=== PATIENT | female | born 1980 | race Caucasian/White ===

== ENCOUNTER 2017-07-28 16:30 | Inpatient (IN) | payer BC ==
[~2017-07-28] VITALS: Ht 154.9 cm; Wt 52.5 kg
[~2017-07-28 16:30] MED LIST: BACL20TA PO; HYDR-3533 PO; METH750T2 PO
[2017-07-28 16:37] VITALS: BP 129/69; PULSE 73; RESP 24; TEMP 98.4; O2SAT 99
[2017-07-28 17:00] VITALS: O2SAT 100
[2017-07-28] MEDS ORDERED: HYDROmorphone HCL PF 1 MG/ML VIAL IV PUSH ONE (17:00)
[2017-07-28 17:15] LABS: AUTOMATED NEUTROPHIL # 7.3 TH/MM3 (1.8-7.7); BASOPHIL # 0.1 TH/MM3 (0-0.2); BASOPHIL % 0.6 % (0.0-2.0); EOSINOPHIL # 0.1 TH/MM3 (0-0.4); EOSINOPHIL % 1.4 % (0.0-4.0); HEMATOCRIT 39.9 % (35.0-46.0); HEMOGLOBIN 13.6 GM/DL (11.6-15.3); LYMPHOCYTE # 1.6 TH/MM3 (1.0-4.8); MEAN CELL VOLUME 94.9 FL (80.0-100.0); MEAN CORPUSCULAR HEMOGLOBIN 32.3 PG (27.0-34.0); MEAN PLATELET VOLUME 8.2 FL (7.0-11.0); MONO % 6.6 % (0.0-8.0); MONOCYTE # 0.6 TH/MM3 (0-0.9); NEUT % 75.4 % (16.0-70.0); PLATELET COUNT 257 TH/MM3 (150-450); RED BLOOD COUNT 4.21 MIL/MM3 (4.00-5.30); RED CELL DISTRIBUTION WIDTH 13.2 % (11.6-17.2); WHITE BLOOD COUNT 9.7 TH/MM3 (4.0-11.0)
[2017-07-28 17:28] LABS: PROTHROMBIN TIME - PATIENT 11.3 SEC (9.8-11.6)
--- NOTE | 2017-07-28 17:29 | RADRPT ---
EXAM DATE/TIME: 07/28/2017 17:18 [facility] COMPARISON: No previous studies available for comparison. INDICATIONS : Evaluate for pneumonia, pneumothorax, or communicable disease. Pre op ankle surgery. MEDICAL HISTORY : None. SURGICAL HISTORY : None. ENCOUNTER: Initial ACUITY: 1 day PAIN SCORE: 0/10 LOCATION: Bilateral chest FINDINGS: A single view of the chest demonstrates the lungs to be symmetrically aerated without evidence of mas s, infiltrate or effusion. The cardiomediastinal contours are unremarkable. Osseous structures are intact. CONCLUSION: 1. No acute cardiopulmonary disease. Jarrett Renee MD on July 28, 2017 at 17:27 Board Certified Radiologist. This report was verified electronically.
--- NOTE | 2017-07-28 17:30 | RADRPT ---
EXAM DATE/TIME: 07/28/2017 17:21 [facility] COMPARISON: No previous studies available for comparison. INDICATIONS : Right tibia pain after ankle being smashed by 2 palets. MEDICAL HISTORY : None. SURGICAL HISTORY : None. ENCOUNTER: Initial ACUITY: 1 day PAIN SCORE: 10/10 LOCATION: Right distal tibia. FINDINGS: There are transverse fractures of distal tibia and fibula with 30 medial angulation of the apex. No articular extent of the fracture is identified. CONCLUSION: 1. Fracture distal tibia and fibula Jarrett Renee MD on July 28, 2017 at 17:27 Board Certified Radiologist. This report was verified electronically.
[2017-07-28 17:41] LABS: BICARBONATE 22.4 MEQ/L (21.0-32.0); CALCIUM 8.4 MG/DL (8.5-10.1); CREATININE 0.78 MG/DL (0.50-1.00)
--- NOTE | 2017-07-28 17:54 | PD ---
HPI Chief Complaint: Injury Time Seen by Provider: 16:37 Travel History International Travel<30 days: No Contact w/Intl Traveler<30days: No Traveled to known affect area: No History of Present Illness HPI 36-year-old female presents with right lower extremity injury. 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 There was obvious deformity on scene. Patient has external angulation of her right ankle. She has normal sensation across her toes. She has cap refill less than 5 seconds and palpable dorsalis pedis pulses. There are no other injury. PFSH Past Medical History Anxiety: Yes Depression: Yes Cancer: No Cardiovascular Problems: No Diabetes: No Diminished Hearing: No Glaucoma: No Hepatitis: No Hiatal Hernia: No Hypertension: No Psychiatric: Yes (PANIC ATTACKS) Respiratory: No Immunizations Current: Yes Thyroid Disease: No ?: Not LMP: 07/07/17 : 2 Para: 2 Past Surgical History Pacemaker: No Other Surgery: Yes Social History Alcohol Use: No Tobacco Use: Yes Substance Use: No Allergies-Medications (Allergen,Severity, Reaction): Coded Allergies: No Known Allergies (Verified Adverse Reaction, Unknown, 07/28/17) Reported Meds & Prescriptions Reported Meds & Active Scripts Active No Active Prescriptions or Reported Medications Review of Systems Except as stated in HPI: all other systems reviewed are Neg HENT: No: Headaches, Neck Pain Cardiovascular: No: Chest Pain or Discomfort, Palpitations Respiratory: No: Cough, Shortness of Breath Gastrointestinal: No: Nausea, Vomiting, Abdominal Pain Musculoskeletal: Positive: Limited ROM (secondary to pain), Pain, No: Weakness (right ankle), Edema Neurologic: No: Weakness, Headache, Paresthesia, Sensory Disturbance Physical Exam Narrative GENERAL: Well-nourished, well-developed patient. SKIN: Focused skin assessment warm/dry. HEAD: Normocephalic/atraumatic. EYES: No scleral icterus. No injection or drainage. NECK: Supple, trachea midline. No JVD or lymphadenopathy. CARDIOVASCULAR: Regular rate and rhythm without murmurs, gallops, or rubs. RESPIRATORY: Breath sounds equal bilaterally. No accessory muscle use. GASTROINTESTINAL: Abdomen soft, nontender. Nondistended. MUSCULOSKELETAL: Obvious lateral displacement of the distal tib-fib. Palpable dorsalis pedis pulses. Cap refill less than 3 seconds. Normal sensation across all 5 toes. There is a puncture wound at the posterior distal third of her ankle. NEUROLOGICAL: Awake and alert. Cranial nerves II through XII intact. Motor grossly within normal limits. Five out of 5 muscle strength in all muscle groups. Normal speech. Data Data Last Documented VS Vital Signs Date Time Temp Pulse Resp B/P (MAP) Pulse Ox O2 Delivery O2 Flow Rate FiO2 07/28/17 17:00 100 Room Air 07/28/17 16:37 98.4 73 24 129/69 (89) Orders Orders Admit Order (Ed Use Only) (07/28/17 16:43) Tibia/Fibula (Ap/Lat) (07/28/17 16:49) Complete Blood Count With Diff (07/28/17 16:49) Basic Metabolic Panel (Bmp) (07/28/17 16:49) Prothrombin Time / Inr (Pt) (07/28/17 16:49) Act Partial Throm Time (Ptt) (07/28/17 16:49) Chest, Single Ap (07/28/17 16:49) Iv Access Insert/Monitor (07/28/17 16:49) Ecg Monitoring (07/28/17 16:49) Oximetry (07/28/17 16:49) Hydromorphone Pf Inj (Dilaudid Pf Inj) (07/28/17 17:00) Admit Order (Ed Use Only) (07/28/17 17:44) Midazolam Inj (Versed Inj) (07/28/17 18:00) Labs Laboratory Tests Test 07/28/17 17:00 White Blood Count 9.7 TH/MM3 Red Blood Count 4.21 MIL/MM3 Hemoglobin 13.6 GM/DL Hematocrit 39.9 % Mean Corpuscular Volume 94.9 FL Mean Corpuscular Hemoglobin 32.3 PG Mean Corpuscular Hemoglobin Concent 34.0 % Red Cell Distribution Width 13.2 % Platelet Count 257 TH/MM3 Mean Platelet Volume 8.2 FL Neutrophils (%) (Auto) 75.4 % Lymphocytes (%) (Auto) 16.0 % Monocytes (%) (Auto) 6.6 % Eosinophils (%) (Auto) 1.4 % Basophils (%) (Auto) 0.6 % Neutrophils # (Auto) 7.3 TH/MM3 Lymphocytes # (Auto) 1.6 TH/MM3 Monocytes # (Auto) 0.6 TH/MM3 Eosinophils # (Auto) 0.1 TH/MM3 Basophils # (Auto) 0.1 TH/MM3 CBC Comment DIFF FINAL Differential Comment Prothrombin Time 11.3 SEC Prothromb Time International Ratio 1.0 RATIO Activated Partial Thromboplast Time 24.3 SEC Blood Urea Nitrogen 12 MG/DL Creatinine 0.78 MG/DL Random Glucose 96 MG/DL Calcium Level 8.4 MG/DL Sodium Level 137 MEQ/L Potassium Level 3.5 MEQ/L Chloride Level 106 MEQ/L Carbon Dioxide Level 22.4 MEQ/L Anion Gap 9 MEQ/L Estimat Glomerular Filtration Rate 83 ML/MIN MDM Medical Decision Making Medical Screen Exam Complete: Yes Emergency Medical Condition: Yes Differential Diagnosis Closed versus open fracture versus contusion versus intra-articular fracture versus dislocation Narrative Course 36-year-old female presents after getting her right lower extremity, between 2 pallets. Patient has obvious deformity to her distal ankle. The patient has a puncture wound in the posterior ankle. This is an open fracture by definition. She has a comminuted distal tibial fracture about an inch above the ankle joint. It was successfully reduced and placed in a Betadine dressing. She was given Ancef and gentamicin. Dr. Casey covering today requested we admit her to the hospitalist service. He states Dr. Martínez will repair the ankle tomorrow morning. She'll be made nothing by mouth after midnight. Procedures Procedure Narrative Using traction, the right ankle was straightened and placed in a posterior splint. Betadine dressing was placed to the posterior puncture wound. Patient had dorsalis pedis pulses after the splinting. Cap refill is less than 3 seconds and she had normal sensation across her toes. Diagnosis Primary Impression: right open distal tibia/fibula fracture Scripts No Active Prescriptions or Reported Meds Ankit Varner MD Jul 28, 2017 17:54
[2017-07-28 18:00] VITALS: BP 143/69; PULSE 76; RESP 21; O2SAT 100
[2017-07-28] MEDS ORDERED: MIDAZOLAM HCL 2 MG/2 ML VIAL IV PUSH ONE (18:00)
[2017-07-28] MEDS ORDERED: MAGNESIUM HYDROXIDE SUSP 30 ML CUP PO PRN (18:15)
[2017-07-28] MEDS ORDERED: SODIUM CHLORIDE 0.9% IV ONE (18:15)
[2017-07-28] MEDS ORDERED: SENNOSIDES 8.6 MG TAB PO PRN (18:15)
[2017-07-28] MEDS ORDERED: LACTULOSE SYRUP 20 GM/30 ML CUP PO PRN (18:15)
[2017-07-28] MEDS ORDERED: BISACODYL 10 MG SUPP RECTAL PRN (18:15)
[2017-07-28] MEDS ORDERED: ONDANSETRON HCL 4 MG/2 ML VIAL IVP PRN (18:15)
[2017-07-28] MEDS ORDERED: MORPHINE SULFATE 4 MG/ML INJ IV PUSH PRN (18:15)
[2017-07-28] MEDS ORDERED: GENTAMICIN IV ONE (18:15)
[2017-07-28] MEDS ORDERED: oxyCODONE/ACETAMINOPHEN 7.5 MG/325 MG TAB PO PRN (18:15)
[2017-07-28] MEDS ORDERED: NALOXONE HCL 0.4 MG/ML AMP IV PUSH PRN (18:15)
[2017-07-28] MEDS ORDERED: ACETAMINOPHEN 325 MG TAB PO PRN (18:15)
[2017-07-28] MEDS ORDERED: ceFAZolin 2 GM PREMIX 50 ML IV ONE (18:15)
[2017-07-28 18:26] VITALS: BP 120/68; PULSE 68; RESP 22; O2SAT 100
--- NOTE | 2017-07-28 18:33 | HHI.HP ---
[facility] Curtis De Jesus MD, PhD Admission Diagnosis right open tib/fib fracture Diagnoses: Chief Complaint: Right leg injury Travel History International Travel<30 Days: No Contact w/Intl Traveler <30 Da: No Traveled to Known Affected Are: No History of Present Illness Ms. 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 Around 3:30 p.m her right foot got stuck in between two pallets. When she was rescued her foot was dangling. She did not move until EMS came to bring her to the hospital. Patient denies any chest pain , shortness of breath, fever or chills. She denies any changes in bowel or bladder habits. ER doctor discussed with orthopedic surgery. Patient underwent right leg immobilization. She will undergo surgical intervention in the morning. Review of Systems Except as stated in HPI: all other systems reviewed are Neg Past Family Social History Past Medical History no significant past medical history Past Surgical History bilateral carpal tunnel surgery Allergies: Coded Allergies: No Known Allergies (Verified Allergy, Unknown, 07/28/17) Family History father - diabetes mellitus Social History patient denies using alcohol or illicit drugs. She smokes occasionally Physical Exam Vital Signs Vital Signs Date Time Temp Pulse Resp B/P (MAP) Pulse Ox O2 Delivery O2 Flow Rate FiO2 07/28/17 18:26 68 22 120/68 (85) 100 Nasal Cannula 2.00 07/28/17 18:26 16 07/28/17 17:00 100 Room Air 07/28/17 16:37 98.4 73 24 129/69 (89) 99 Physical Exam GENERAL: This is a well-nourished, well-developed patient, in no apparent distress. SKIN: No rashes, ecchymoses or lesions. Warm and dry. HEAD: Atraumatic. Normocephalic. No temporal or scalp tenderness. EYES: Pupils equal round and reactive. No injection or drainage. ENT: Nose without bleeding, purulent drainage or septal hematoma. Airway patent. NECK: Trachea midline. No lymphadenopathy. Supple, nontender, no meningeal signs. CARDIOVASCULAR: Regular rate and rhythm without murmurs, gallops, or rubs. No JVD. RESPIRATORY: Clear to auscultation. Breath sounds equal bilaterally. No wheezes , rales, or rhonchi. GASTROINTESTINAL: Abdomen soft, non-tender, nondistended. No guarding. MUSCULOSKELETAL: Extremities without clubbing, cyanosis, or edema. Able to move all toes. Right leg immobilizer in place. NEUROLOGICAL: Awake and alert. Cranial nerves II through XII intact. No focal neurological deficits. Normal speech. Laboratory Laboratory Tests Test 07/28/17 17:00 White Blood Count 9.7 Red Blood Count 4.21 Hemoglobin 13.6 Hematocrit 39.9 Mean Corpuscular Volume 94.9 Mean Corpuscular Hemoglobin 32.3 Mean Corpuscular Hemoglobin Concent 34.0 Red Cell Distribution Width 13.2 Platelet Count 257 Mean Platelet Volume 8.2 Neutrophils (%) (Auto) 75.4 Lymphocytes (%) (Auto) 16.0 Monocytes (%) (Auto) 6.6 Eosinophils (%) (Auto) 1.4 Basophils (%) (Auto) 0.6 Neutrophils # (Auto) 7.3 Lymphocytes # (Auto) 1.6 Monocytes # (Auto) 0.6 Eosinophils # (Auto) 0.1 Basophils # (Auto) 0.1 CBC Comment DIFF FINAL Differential Comment Prothrombin Time 11.3 Prothromb Time International Ratio 1.0 Activated Partial Thromboplast Time 24.3 Blood Urea Nitrogen 12 Creatinine 0.78 Random Glucose 96 Calcium Level 8.4 Sodium Level 137 Potassium Level 3.5 Chloride Level 106 Carbon Dioxide Level 22.4 Anion Gap 9 Estimat Glomerular Filtration Rate 83 Result Diagram: 07/28/17 1700 07/28/17 170 Imaging Last Impressions Tibia/Fibula X-Ray 07/28/171648 Signed Impressions: Service Date/Time: Friday, July 28, 2017 17:21 - CONCLUSION: 1. Fracture distal tibia and fibula Jarrett Renee MD Chest X-Ray 07/28/171648 Signed Impressions: Service Date/Time: Friday, July 28, 2017 17:18 - CONCLUSION: 1. No acute cardiopulmonary disease. Jarrett B. Turetsky, MD Caprini VTE Risk Assessment Caprini VTE Risk Assessment: Mod/High Risk (score >= 2) Caprini Risk Assessment Model Point Value = 1 Point Value = 2 Point Value = 3 Point Value = 5 Age 41-60 Minor surgery BMI > 25 kg/m2 Swollen legs Varicose veins or History of unexplained or recurrent spontaneous Oral contraceptives or hormone replacement Sepsis (< 1 month) Serious lung disease, including pneumonia (< 1 month) Abnormal pulmonary function Acute myocardial infarction Congestive heart failure (< 1 month) History of inflammatory bowel disease Medical patient at bed rest Age 61-74 Arthroscopic surgery Major open surgery (> 45 min) Laparoscopic surgery (> 45 min) Malignancy Confined to bed (> 72 hours) Immobilizing plaster cast Central venous access Age >= 75 History of VTE Family history of VTE Factor V Leiden Prothrombin [id number] Lupus anticoagulant Anticardiolipin antibodies Elevated serum homocysteine Heparin-induced thrombocytopenia Other congenital or acquired thrombophilia Stroke (< 1 month) Elective arthroplasty Hip, pelvis, or leg fracture Acute spinal cord injury (< 1 month) Prophylaxis Regimen Total Risk Factor Score Risk Level Prophylaxis Regimen 0-1 Low Early ambulation 2 Moderate Order ONE of the following: *Sequential Compression Device (SCD) *Heparin 5000 units SQ BID 3-4 Higher Order ONE of the following medications: *Heparin 5000 units SQ TID *Enoxaparin/Lovenox 40 mg SQ daily (WT < 150 kg, CrCl > 30 mL/min) *Enoxaparin/Lovenox 30 mg SQ daily (WT < 150 kg, CrCl > 10-29 mL/min) *Enoxaparin/Lovenox 30 mg SQ BID (WT < 150 kg, CrCl > 30 mL/min) AND/OR *Sequential Compression Device (SCD) 5 or more Highest Order ONE of the following medications: *Heparin 5000 units SQ TID (Preferred with Epidurals) *Enoxaparin/Lovenox 40 mg SQ daily (WT < 150 kg, CrCl > 30 mL/min) *Enoxaparin/Lovenox 30 mg SQ daily (WT < 150 kg, CrCl > 10-29 mL/min) *Enoxaparin/Lovenox 30 mg SQ BID (WT < 150 kg, CrCl > 30 mL/min) AND *Sequential Compression Device (SCD) Assessment and Plan Assessment and Plan Ms. Prakash is a 36 year old female who presents to the ED on 07/28/2017 after she injured her right leg in between two pallets at her work place. Radiological work up indicated right tibial and fibular fracture. - Right Tibial and fibular fracture - Images reviewed by me - shows distal tibia and fibula fracture. - orthopedic surgery Consulted. - NPO midnight. likely surgery in the morning. - acetaminophen, Percocet, Dilaudid intravenous PRN for pain management. Full code. Pharmacological DVT prophylaxis after surgery tomorrow. Physician Certification 2 Midnight Certification Type: Admission for Inpatient Services Order for Inpatient Services The services are ordered in accordance with Medicare regulations or non- Medicare payer requirements, as applicable. In the case of services not specified as inpatient-only, they are appropriately provided as inpatient services in accordance with the 2-midnight benchmark. Estimated LOS (days): 2 days is the estimated time the patient will need to remain in the hospital, assuming treatment plan goals are met and no additional complications. Post-Hospital Plan: Home Vera Campos DO Jul 28, 2017 18:33
[2017-07-28] MEDS: HYDROmorphone HCL PF 1 MG/ML VIAL IV PUSH PRN ×2 (18:53→23:38)
[2017-07-28 19:00] VITALS: BP 119/75; PULSE 74; RESP 22; O2SAT 100
[2017-07-28 22:15] VITALS: BP 125/73; PULSE 78; RESP 17; TEMP 98.3; O2SAT 100
[2017-07-28] MEDS ORDERED: SODIUM CHLORID 0.9% 500 ML IV PRN (22:30)
[2017-07-28] MEDS ORDERED: INSULIN HUMAN REGULAR 1,000 UNITS/10 ML VIAL SQ PRN (22:30)
[2017-07-28] MEDS ORDERED: METOPROLOL TARTRATE 25 MG TAB PO PRN (22:30)
[2017-07-28] MEDS ORDERED: CHLORHEXIDINE GLUCONATE 2 % 1 PACK (2 CLOTHS) TOPICAL PRN (22:30)
[2017-07-28] MEDS ORDERED: LACTATED RINGER'S 1000 ML IV PRN (22:30)
[2017-07-28] MEDS ORDERED: POVIDONE IODINE 5% (ANTISEPSIS KIT) 4 APPLICATIONS EACH NARE PRN (22:30)
[2017-07-28] MEDS: SODIUM CHLORIDE 0.9% FLUSH 10 ML FLUSH IV FLUSH SCH (23:39)
[2017-07-28] MEDS: SODIUM CHLOR 0.9% 1000 ML INJ 1,000 ML IV SCH (23:44)
[2017-07-29] VITALS (9 sets, daily range): BP systolic 110–125; BP diastolic 55–72; PULSE 66–82; RESP 16–19; TEMP 97.1–99; O2SAT 74–100
[2017-07-29] MEDS: SODIUM CHLOR 0.9% 1000 ML INJ 1,000 ML IV SCH (06:16)
[2017-07-29 06:41] LABS: AUTOMATED NEUTROPHIL # 7.7 TH/MM3 (1.8-7.7); BASOPHIL % 0.3 % (0.0-2.0); EOSINOPHIL # 0.1 TH/MM3 (0-0.4); EOSINOPHIL % 1.2 % (0.0-4.0); HEMATOCRIT 34.8 % (35.0-46.0); HEMOGLOBIN 11.8 GM/DL (11.6-15.3); LYMPH % 12.6 % (9.0-44.0); LYMPHOCYTE # 1.3 TH/MM3 (1.0-4.8); MEAN CELL VOLUME 95.2 FL (80.0-100.0); MEAN CORPUSCULAR HEMOGLOBIN 32.1 PG (27.0-34.0); MEAN CORPUSCULAR HGB CONC 33.7 % (32.0-36.0); MEAN PLATELET VOLUME 8.5 FL (7.0-11.0); MONO % 9.8 % (0.0-8.0); NEUT % 76.1 % (16.0-70.0); PLATELET COUNT 201 TH/MM3 (150-450); RED BLOOD COUNT 3.66 MIL/MM3 (4.00-5.30); WHITE BLOOD COUNT 10.1 TH/MM3 (4.0-11.0)
[2017-07-29 07:15] LABS: BICARBONATE 23.3 MEQ/L (21.0-32.0); CALCIUM 7.9 MG/DL (8.5-10.1); CREATININE 0.59 MG/DL (0.50-1.00)
[2017-07-29] MEDS ORDERED: GENTAMICIN SULFATE 80 MG/2 ML VIAL ONE ×2 (08:35)
[2017-07-29] MEDS ORDERED: ACETAMINOPHEN 1000 MG/100 ML 100 ML IV ONE (08:35)
[2017-07-29] MEDS ORDERED: ceFAZolin INJ 1,000 MG VIAL ONE (08:35)
--- NOTE | 2017-07-29 09:23 | MB ---
cc: ALEXANDER MACHADO DATE OF ADMISSION 07/28/2017 DATE OF CONSULTATION 07/29/2017 REASON FOR CONSULTATION Right distal tibia and fibula fractures. CONSULTING PHYSICIAN Dr. Campos. HISTORY Judith is a 36-year-old female who presented to the emergency room. She works at [employer]. She was working in the freezer area. Her right ankle got caught between two pallets that were being moved by a forklift. She had immediate right leg pain. She was unable to stand or ambulate. She presented to the emergency room via EMS. X-rays revealed a displaced right distal tibia and fibula fracture. She is currently awake and alert on the orthopedic floor. Her only complaint is her right leg. She denies any dizziness, syncope or loss of consciousness. PAST MEDICAL HISTORY ILLNESSES None. SURGERIES Bilateral carpal tunnel release. ALLERGIES None. MEDICATIONS Please see EMR for list of inpatient medications. FAMILY HISTORY Positive for diabetes in her father. SOCIAL HISTORY The patient denies alcohol or drug use. She smokes occasionally. REVIEW OF SYSTEMS The patient denies headache, visual changes, neck pain, chest pain, shortness of breath, abdominal pain, nausea, vomiting, fever, chills, recent weight loss or numbness or tingling of extremities. She complains of right ankle pain. The pain is worse with movement. PHYSICAL EXAMINATION GENERAL: The patient is a well-developed, well-nourished, 36-year-old female in no acute distress. She is awake and alert. She is alert and oriented x3. VITAL SIGNS: Temperature 99.0, pulse 66, respirations 18, blood pressure 116/72, sat 98% on room air. HEAD: The patient is normocephalic. Pupils are equal. Neck: Soft, nontender. Trachea is midline. ABDOMEN: Soft, nontender, nondistended. EXTREMITIES: Examination of the bilateral upper extremities reveals no pain with shoulder, elbow or wrist motion. She has intact sensation in the radial, ulnar and median nerve distributions bilaterally. Radial pulses are palpable bilaterally. She has +5 correctional classification counselor strength bilaterally. Examination of the left leg reveals no pain with hip, knee or ankle motion. Skin is intact. Dorsalis pedis pulse is palpable. Sensation is intact. Examination of the right leg reveals no pain with hip or knee motion. She is diffusely tender around the ankle. She has good capillary refill in her toes. She has minimal pain with passive range of motion of her toes. The calf compartments are soft. She has mild deformity of the ankle. X-RAYS X-rays of right ankle are reviewed. X-rays reveal displaced right distal tibia and fibula fractures. The fracture appears to be proximal to the articular surface. IMPRESSION Displaced right distal tibia and fibula fractures with possible open injury. PLAN The treatment options were discussed the patient. At this point I would recommend surgery. The patient may need a staged procedure depending on the condition of the skin. The patient may need external fixation and closed reduction of the fracture first followed by definitive open reduction and internal fixation once swelling has improved. If the skin condition appears to be appropriate, I may proceed with open reduction and fixation of the distal tibia today. The risks of surgery include bleeding, infection, injury arteries, nerves and blood vessels, nonunion, malunion, painful hardware, ankle stiffness, loss of motion, as well as medical complications including blood clot, stroke, heart attack and were discussed. All questions were answered. I will plan on surgery today. A mid-level provider in my office, nurse practitioner or PA, may see this patient on a follow-up basis and continue to implement the objective of this plan including: Starting or adjusting medications, injections of muscle, tendon, bursa or joints, cast application, orthotic or brace application, physical therapy, further radiographic studies including x-ray, MRI, CT, ultrasounds or bone scan, vascular studies, neurologic studies, or other specialist consultations, and proceeding with surgical management as appropriate. MD DANILO Daniels/BRUNILDA /8:22 AM /9:11 AM
[2017-07-29] MEDS ORDERED: MISCELLANEOUS NURSING INFORMATION XX PRN (10:15)
[2017-07-29] MEDS ORDERED: Post-op Orders (for Pharmacy) MISC XX ONE (10:15)
[2017-07-29] MEDS ORDERED: SODIUM CHLORIDE 0.9% FLUSH 5 ML FLUSH IVF PRN (10:15)
[2017-07-29] MEDS ORDERED: diphenhydrAMINE HCL 25 MG CAP PO PRN (10:15)
--- NOTE | 2017-07-29 10:25 | PD.OP ---
cc: Parish Martínez MD Operative Report Date of Surgery: Jul 29, 2017 Preoperative Diagnosis: Displaced right distal tibia and fibula fractures Postoperative Diagnosis: Procedure: Irrigation and debridement of open right distal tibia fracture, open reduction internal fixation right distal tibia fracture Anesthesia: Gen. Surgeon: Parish Martínez Watch Repairer(s): MARKUS Menard PA-C The surgical procedure was assisted by my physician coding assistant. My P.A. presence was necessary throughout this case for the manipulation and positioning of the surgical extremity. My P.A. was assisting me throughout the duration of this procedure. The skill set of a physician coding assistant was medically necessary to complete this procedure. During the surgical case the surgical dental assistant was working at the back table and the physician coding assistant was directly assisting me. Operation and Findings: Informed consent was obtained for open reduction and internal fixation of right distal tibia fracture. Soft tissue was evaluated preoperatively and found to be suitable for surgery. Patient did have a small puncture wound consistent with open fracture. Patient was brought to the operating placed on operating room table. Patient was given IV sedation and general anesthesia. Timeout procedure was performed, and IV antibiotics were given prior to procedure. The operative leg was now prepped with alcohol followed by Hibiclens and draped usual sterile fashion. A 3 inch incision was now made over the medial aspect of the ankle. Saphenous vein was protected. A full thickness flap was now elevated. The distal medial tibia was now exposed. At this point attention was turned towards irrigation and debridement. The ends of the fracture were exposed. Curettes and rongeurs were used to debride the edges of the bone. Overall the wound appeared to be very clean. After thorough debridement the wound was thoroughly irrigated with sterile saline. Next, Attention was now turned towards reduction. The metaphyseal fragments were reduced first. Traction was applied and fracture fragments were manipulated. There were multiple metaphyseal fragments. These were manipulated in excellent reduction was achieved. Fracture tenaculums were used to reduce fractures. Multiple K wires were used to hold provisional fixation. Fluoroscopy confirmed excellent alignment of fractures. A Synthes medial distal tibial plate was selected. Plate was placed percutaneously along the medial aspect of the distal tibia. Plate was provisionally held to bone with K wires. 2.7 cortical screws and 3.5 cortical screws were used to compress plate to bone. Multiple screws were placed into the shaft. Multiple 2.7 locking screws were placed into the distal segment. All screws were predrilled and premeasured for appropriate lengths. Final fluoroscopy revealed well aligned fracture with well-placed hardware. The wound was now thoroughly irrigated. Subcutaneous tissues closed with 3-0 PDS and skin was closed with 3-0 nylon. Sterile dressings were applied with Xeroform 4 x 4's soft roll and a well- padded splint. Needle and sponge counts were correct. Patient was transferred to recovery room in stable condition. Parish Martínez MD Jul 29, 2017 10:25
--- NOTE | 2017-07-29 10:25 | PD.OP ---
cc: Parish Martínez MD Operative Report Date of Surgery: Jul 29, 2017 Preoperative Diagnosis: Displaced right distal tibia and fibula fractures Postoperative Diagnosis: Procedure: Irrigation and debridement of open right distal tibia fracture, open reduction internal fixation right distal tibia fracture Anesthesia: Gen. Surgeon: Parish Martínez Base Cloth Inspector(s): MARKUS Menard PA-C The surgical procedure was assisted by my physician career services assistant. My P.A. presence was necessary throughout this case for the manipulation and positioning of the surgical extremity. My P.A. was assisting me throughout the duration of this procedure. The skill set of a physician career services assistant was medically necessary to complete this procedure. During the surgical case the valve technician was working at the back table and the physician career services assistant was directly assisting me. Operation and Findings: Informed consent was obtained for open reduction and internal fixation of right distal tibia fracture. Soft tissue was evaluated preoperatively and found to be suitable for surgery. Patient did have a small puncture wound consistent with open fracture. Patient was brought to the operating placed on operating room table. Patient was given IV sedation and general anesthesia. Timeout procedure was performed, and IV antibiotics were given prior to procedure. The operative leg was now prepped with alcohol followed by Hibiclens and draped usual sterile fashion. A 3 inch incision was now made over the medial aspect of the ankle. Saphenous vein was protected. A full thickness flap was now elevated. The distal medial tibia was now exposed. At this point attention was turned towards irrigation and debridement. The ends of the fracture were exposed. Curettes and rongeurs were used to debride the edges of the bone. Overall the wound appeared to be very clean. After thorough debridement the wound was thoroughly irrigated with sterile saline. Next, Attention was now turned towards reduction. The metaphyseal fragments were reduced first. Traction was applied and fracture fragments were manipulated. There were multiple metaphyseal fragments. These were manipulated in excellent reduction was achieved. Fracture tenaculums were used to reduce fractures. Multiple K wires were used to hold provisional fixation. Fluoroscopy confirmed excellent alignment of fractures. A Synthes medial distal tibial plate was selected. Plate was placed percutaneously along the medial aspect of the distal tibia. Plate was provisionally held to bone with K wires. 2.7 cortical screws and 3.5 cortical screws were used to compress plate to bone. Multiple screws were placed into the shaft. Multiple 2.7 locking screws were placed into the distal segment. All screws were predrilled and premeasured for appropriate lengths. Final fluoroscopy revealed well aligned fracture with well-placed hardware. The wound was now thoroughly irrigated. Subcutaneous tissues closed with 3-0 PDS and skin was closed with 3-0 nylon. Sterile dressings were applied with Xeroform 4 x 4's soft roll and a well- padded splint. Needle and sponge counts were correct. Patient was transferred to recovery room in stable condition. Parish Martínez MD Jul 29, 2017 10:25
--- NOTE | 2017-07-29 10:25 | PD.OP ---
cc: Parish Martínez MD Operative Report Date of Surgery: Jul 29, 2017 Preoperative Diagnosis: Displaced right distal tibia and fibula fractures Postoperative Diagnosis: Procedure: Irrigation and debridement of open right distal tibia fracture, open reduction internal fixation right distal tibia fracture Anesthesia: Gen. Surgeon: Parish Martínez Trauma Registrar(s): MARKUS Menard PA-C The surgical procedure was assisted by my physician pharmacy assistant. My P.A. presence was necessary throughout this case for the manipulation and positioning of the surgical extremity. My P.A. was assisting me throughout the duration of this procedure. The skill set of a physician pharmacy assistant was medically necessary to complete this procedure. During the surgical case the heating technician was working at the back table and the physician pharmacy assistant was directly assisting me. Operation and Findings: Informed consent was obtained for open reduction and internal fixation of right distal tibia fracture. Soft tissue was evaluated preoperatively and found to be suitable for surgery. Patient did have a small puncture wound consistent with open fracture. Patient was brought to the operating placed on operating room table. Patient was given IV sedation and general anesthesia. Timeout procedure was performed, and IV antibiotics were given prior to procedure. The operative leg was now prepped with alcohol followed by Hibiclens and draped usual sterile fashion. A 3 inch incision was now made over the medial aspect of the ankle. Saphenous vein was protected. A full thickness flap was now elevated. The distal medial tibia was now exposed. At this point attention was turned towards irrigation and debridement. The ends of the fracture were exposed. Curettes and rongeurs were used to debride the edges of the bone. Overall the wound appeared to be very clean. After thorough debridement the wound was thoroughly irrigated with sterile saline. Next, Attention was now turned towards reduction. The metaphyseal fragments were reduced first. Traction was applied and fracture fragments were manipulated. There were multiple metaphyseal fragments. These were manipulated in excellent reduction was achieved. Fracture tenaculums were used to reduce fractures. Multiple K wires were used to hold provisional fixation. Fluoroscopy confirmed excellent alignment of fractures. A Synthes medial distal tibial plate was selected. Plate was placed percutaneously along the medial aspect of the distal tibia. Plate was provisionally held to bone with K wires. 2.7 cortical screws and 3.5 cortical screws were used to compress plate to bone. Multiple screws were placed into the shaft. Multiple 2.7 locking screws were placed into the distal segment. All screws were predrilled and premeasured for appropriate lengths. Final fluoroscopy revealed well aligned fracture with well-placed hardware. The wound was now thoroughly irrigated. Subcutaneous tissues closed with 3-0 PDS and skin was closed with 3-0 nylon. Sterile dressings were applied with Xeroform 4 x 4's soft roll and a well- padded splint. Needle and sponge counts were correct. Patient was transferred to recovery room in stable condition. Parish Martínez MD Jul 29, 2017 10:25
[2017-07-29] MEDS ORDERED: DO NOT ADM ANY ANTICOAGULANT DRUGS PRN (10:41)
[2017-07-29] MEDS: LACTATED RINGER'S 1000 ML INJ 1,000 ML IV SCH ×2 (11:00→21:00)
[2017-07-29] MEDS ORDERED: ePHEDrine/NS 25 MG/5 ML SYR IV ONE (12:00)
[2017-07-29] MEDS ORDERED: KETOROLAC TROMETHAMINE 30 MG/ML (IVP) VIAL IV PUSH ONE (12:00)
[2017-07-29] MEDS ORDERED: LIDOCAINE HCL 1% PF 5 ML AMPULE OTHER ONE (12:00)
[2017-07-29] MEDS ORDERED: MIDAZOLAM HCL 2 MG/2 ML VIAL IV ONE (12:00)
[2017-07-29] MEDS ORDERED: DEXAMETHASONE SOD PHOS 4 MG/ML VIAL IV ONE (12:00)
[2017-07-29] MEDS ORDERED: ONDANSETRON HCL 4 MG/2 ML VIAL IV PUSH ONE (12:00)
[2017-07-29] MEDS ORDERED: PROPOFOL 200 MG/20 ML AMP IV ONE ×2 (12:00)
[2017-07-29] MEDS: ACETAMINOPHEN/HYDROcodone 325 MG/10 MG TAB PO PRN ×2 (14:29→20:50)
[2017-07-29] MEDS: KETOROLAC TROMETHAMINE 30 MG/ML (IVP) VIAL IVP SCH (17:05)
[2017-07-29] MEDS: GENTAMICIN 80 MG PREMIX 100 ML IV SCH (17:06)
[2017-07-29] MEDS: ceFAZolin 2 GM PREMIX 50 ML IV SCH (17:06)
[2017-07-29] MEDS: SODIUM CHLORIDE 0.9% FLUSH 10 ML FLUSH IV FLUSH PRN (17:06)
--- NOTE | 2017-07-29 17:24 | RADRPT ---
EXAM DATE/TIME: 07/29/2017 09:50 [facility] COMPARISON: TIBIA/FIBULA RIGHT (AP/LAT), July 28, 2017, 17:21. INDICATIONS : Reduction with screw and plate placement right tib fib., MEDICAL HISTORY : Fracture distal tibia and fibula SURGICAL HISTORY : None. ENCOUNTER: Subsequent ACUITY: 2 days PAIN SCORE: Non-responsive. LOCATION: Right Tib fib. FINDINGS: 4 digital images of the distal leg is performed in the operating room using C-arm during placement of a long tibial plate CONCLUSION: Intraoperative images. Luke Bruce MD on July 29, 2017 at 17:23 Board Certified Radiologist. This report was verified electronically.
[2017-07-29] MEDS: SODIUM CHLORIDE 0.9% FLUSH 10 ML FLUSH IV FLUSH SCH (20:50)
[2017-07-29] MEDS ORDERED: SODIUM CHLORIDE 0.9% FLUSH 5 ML FLUSH IVF SCH (21:00)
[2017-07-30] VITALS (7 sets, daily range): BP systolic 101–131; BP diastolic 60–75; PULSE 73–79; RESP 16–18; TEMP 97.8–99.3; O2SAT 98–100
--- NOTE | 2017-07-30 00:26 | HHI.PR ---
Addendum to Inpatient Note Additional Information Attempted to see patient in the morning on 07/29/2017. She was in surgery. Reviewed chart. Vera Campos DO Jul 30, 2017 00:26
[2017-07-30] MEDS: KETOROLAC TROMETHAMINE 30 MG/ML (IVP) VIAL IVP SCH ×3 (00:51→16:57)
[2017-07-30] MEDS: ceFAZolin 2 GM PREMIX 50 ML IV SCH ×3 (00:52→16:56)
[2017-07-30] MEDS: GENTAMICIN 80 MG PREMIX 100 ML IV SCH ×3 (00:52→16:56)
--- NOTE | 2017-07-30 06:32 | PD.ORT.PN ---
Subjective Subjective Remarks Resting comfortably with no new complaints Objective Vitals Vital Signs Date Time Temp Pulse Resp B/P (MAP) Pulse Ox O2 Delivery O2 Flow Rate FiO2 07/30/17 03:43 98.4 76 18 112/69 (83) 99 07/29/17 23:58 98.8 76 17 110/65 (80) 97 07/29/17 20:55 Room Air 07/29/17 19:15 97.9 74 16 112/69 (83) 99 07/29/17 19:15 97.9 74 16 112/69 (83) 74 07/29/17 15:50 99 21 07/29/17 15:41 98.7 82 18 119/55 (76) 99 07/29/17 11:30 97.1 76 19 125/72 (89) 100 07/29/17 11:15 97.5 77 16 122/60 (80) 100 Room Air 07/29/17 11:00 77 16 122/60 (80) 100 Room Air 07/29/17 10:45 95 16 122/58 (79) 100 Room Air 07/29/17 10:44 97.8 102 16 126/60 (82) 100 Room Air 07/29/17 07:25 99.0 66 18 116/70 (85) 98 I/O 07/29/17 07/29/17 07/29/17 07/30/17 07/30/17 07/30/17 07:00 15:00 23:00 07:00 15:00 23:00 Intake Total 1000 ml 1500 ml 720 ml Output Total 230 ml Balance 1000 ml 1270 ml 720 ml Intake Oral 0 ml 480 ml 720 ml IV Total 1000 ml 20 ml Other 1000 ml Output Urine Total 200 ml Estimated Blood Loss 30 ml # Voids 1 2 5 # Bowel Movements 0 0 0 Result Diagram: 07/29/17 0607 07/29/17 0607 Imaging Last 72 hours Impressions Tibia/Fibula X-Ray 07/29/17 0000 Signed Impressions: Service Date/Time: Saturday, July 29, 2017 09:50 - CONCLUSION: Intraoperative images. Luke Bruce MD Tibia/Fibula X-Ray 07/28/17 1649 Signed Impressions: Service Date/Time: Friday, July 28, 2017 17:21 - CONCLUSION: 1. Fracture distal tibia and fibula Jarrett Renee MD Chest X-Ray 07/28/17 1649 Signed Impressions: Service Date/Time: Friday, July 28, 2017 17:18 - CONCLUSION: 1. No acute cardiopulmonary disease. Jarrett Renee MD Objective Remarks Right lower extremity: Clean dry dressings intact. Splint intact. Intact sensation distally in all toes with good capillary refills and tissue perfusion Assessment & Plan Assessment and Plan ORIF right distal tibia POD 1 Nonweightbearing right lower extremity Maintain splint Elevation Continue IV antibiotics Discharge to home tomorrow after antibiotics are completed Follow-up with Dr. Martínez or PA in 2 weeks Levi Barron Jr. Jul 30, 2017 06:32
[2017-07-30] MEDS: SODIUM CHLORIDE 0.9% FLUSH 10 ML FLUSH IV FLUSH SCH (08:55)
--- NOTE | 2017-07-30 08:58 | HHI.PR ---
Subjective Remarks Follow-up for right TBI/fibula fracture. Patient underwent ORIF right distal tibia on 07/29/2017. Patient is currently doing well. Pain is well controlled. Denies any chest pain, shortness of breath, fever or chills. No bowel movement yet. Objective Vitals Vital Signs Date Time Temp Pulse Resp B/P (MAP) Pulse Ox O2 Delivery O2 Flow Rate FiO2 07/30/17 03:43 98.4 76 18 112/69 (83) 99 07/29/17 23:58 98.8 76 17 110/65 (80) 97 07/29/17 20:55 Room Air 07/29/17 19:15 97.9 74 16 112/69 (83) 99 07/29/17 19:15 97.9 74 16 112/69 (83) 74 07/29/17 15:50 99 21 07/29/17 15:41 98.7 82 18 119/55 (76) 99 07/29/17 11:30 97.1 76 19 125/72 (89) 100 07/29/17 11:15 97.5 77 16 122/60 (80) 100 Room Air 07/29/17 11:00 77 16 122/60 (80) 100 Room Air 07/29/17 10:45 95 16 122/58 (79) 100 Room Air 07/29/17 10:44 97.8 102 16 126/60 (82) 100 Room Air I/O 07/29/17 07/29/17 07/29/17 07/30/17 07/30/17 07/30/17 07:00 15:00 23:00 07:00 15:00 23:00 Intake Total 1000 ml 1500 ml 720 ml 360 ml Output Total 230 ml Balance 1000 ml 1270 ml 720 ml 360 ml Intake Oral 0 ml 480 ml 720 ml 360 ml IV Total 1000 ml 20 ml Other 1000 ml Output Urine Total 200 ml Estimated Blood Loss 30 ml # Voids 1 2 5 4 # Bowel Movements 0 0 0 0 Result Diagram: 07/29/17 0607 07/29/17 0607 Imaging Last Impressions Tibia/Fibula X-Ray 07/29/17 0000 Signed Impressions: Service Date/Time: Saturday, July 29, 2017 09:50 - CONCLUSION: Intraoperative images. Luke Bruce MD Chest X-Ray 07/28/17 9969 Signed Impressions: Service Date/Time: Friday, July 28, 2017 17:18 - CONCLUSION: 1. No acute cardiopulmonary disease. Jarrett Renee MD Objective Remarks GENERAL: Alert, oriented 3, NAD. SKIN: Warm and dry. HEAD: Normocephalic. EYES: No scleral icterus. No injection or drainage. NECK: Supple, trachea midline. No JVD or lymphadenopathy. CARDIOVASCULAR: Regular rate and rhythm without murmurs, gallops, or rubs. RESPIRATORY: Breath sounds equal bilaterally. No accessory muscle use. GASTROINTESTINAL: Abdomen soft, non-tender, nondistended. MUSCULOSKELETAL: No cyanosis, or edema. Right lower extremity is wrapped status post ORIF BACK: Nontender without obvious deformity. No CVA tenderness. Procedures Irrigation and debridement of open right distal tibia fracture, open reduction internal fixation right distal tibia fracture 07/29/2017 A/P Problem List: (1) Tibia and fibula open fracture, right ICD Code: S82.201B - Unspecified fracture of shaft of right tibia, initial encounter for open fracture type I or II; S82.401B - Unspecified fracture of shaft of right fibula, initial encounter for open fracture type I or II Assessment and Plan Ms. Prakash is a 36 year old female who presents to the ED on 07/28/2017 after she injured her right leg in between two pallets at her work place. Radiological work up indicated right tibial and fibular fracture. - Right Tibial and fibular fracture - s/p ORIF right distal tibia fracture - Continue acetaminophen, [place], Dilaudid IV for pain management. - Patient is currently receiving post op antibiotics. - Likely discharge tomorrow 07/31/2017. Full code. Vera Campos DO Jul 30, 2017 8:58 am
[2017-07-30] MEDS: ACETAMINOPHEN/HYDROcodone 325 MG/10 MG TAB PO PRN ×2 (09:26→18:04)
[2017-07-30] MEDS: SODIUM CHLORIDE 0.9% FLUSH 10 ML FLUSH IV FLUSH PRN (16:58)
[2017-07-31] MEDS: GENTAMICIN 80 MG PREMIX 100 ML IV SCH ×2 (00:13→07:25)
[2017-07-31] MEDS: SODIUM CHLORIDE 0.9% FLUSH 10 ML FLUSH IV FLUSH SCH (00:14)
[2017-07-31] MEDS: ceFAZolin 2 GM PREMIX 50 ML IV SCH ×2 (00:14→07:24)
[2017-07-31 00:40] VITALS: BP 100/68; PULSE 62; RESP 20; TEMP 98.2; O2SAT 98
[2017-07-31 05:39] VITALS: BP 103/62; PULSE 65; RESP 19; TEMP 98.7; O2SAT 99
--- NOTE | 2017-07-31 06:27 | PD.ORT.PN ---
Subjective Subjective Remarks POD 2 s/p ORIF right distal tibia and fibula doing well. pain controlled. out of bed with walker and states she feels ready to go home Objective Vitals Vital Signs Date Time Temp Pulse Resp B/P (MAP) Pulse Ox O2 Delivery O2 Flow Rate FiO2 07/31/17 05:39 98.7 65 19 103/62 (76) 99 07/31/17 00:40 98.2 62 20 100/68 (79) 98 07/30/17 20:31 Room Air 07/30/17 19:30 98.3 75 16 131/75 (93) 07/30/17 19:20 99.3 73 16 101/60 (74) 98 07/30/17 16:05 97.8 79 16 110/65 (80) 100 07/30/17 12:00 98.7 73 17 107/62 (77) 98 07/30/17 10:26 20 07/30/17 09:54 20 07/30/17 09:25 98 21 07/30/17 08:00 99.1 73 18 121/69 (86) 99 I/O 07/30/17 07/30/17 07/30/17 07/31/17 07/31/17 07/31/17 07:00 15:00 23:00 07:00 15:00 23:00 Intake Total 360 ml 720 ml 360 ml Balance 360 ml 720 ml 360 ml Intake Oral 360 ml 720 ml 360 ml # Voids 4 3 3 # Bowel Movements 0 0 1 Result Diagram: 07/29/17 0607 07/29/17 0607 Imaging Last 72 hours Impressions Tibia/Fibula X-Ray 07/29/17 0000 Signed Impressions: Service Date/Time: Saturday, July 29, 2017 09:50 - CONCLUSION: Intraoperative images. Luke Bruce MD Tibia/Fibula X-Ray [id number] Signed Impressions: Service Date/Time: Friday, July 28, 2017 17:21 - CONCLUSION: 1. Fracture distal tibia and fibula Jarrett Renee MD Chest X-Ray [id number] Signed Impressions: Service Date/Time: Friday, July 28, 2017 17:18 - CONCLUSION: 1. No acute cardiopulmonary disease. Jarrett Renee MD Objective Remarks Right lower extremity: Clean dry dressings intact. Splint intact. Intact sensation distally in all toes with good capillary refills and tissue perfusion Assessment & Plan Assessment and Plan 1) ORIF right distal tibia POD 2 Nonweightbearing right lower extremity Maintain splint Elevation Discharge to home today with [facility] ortho cleared for DC Follow-up with Dr. Martínez or PA in 2 weeks Saúl Mi Jul 31, 2017 06:27
[2017-07-31] MEDS ORDERED: XARE10TA PO (06:28)
[2017-07-31] MEDS ORDERED: WALKER/ADULT/FO1 MIS (06:28)
[2017-07-31] MEDS ORDERED: HYDR-3583 PO (06:28)
[2017-07-31 08:00] VITALS: BP 119/67; PULSE 75; RESP 16; TEMP 98.2; O2SAT 99
[2017-07-31] MEDS: ACETAMINOPHEN/HYDROcodone 325 MG/10 MG TAB PO PRN (08:46)
--- NOTE | 2017-07-31 13:28 | HHI.DS ---
Discharge Summary Admission Date Jul 28, 2017 at 17:49 Discharge Date: Jul 31, 2017 Admitting Diagnosis right open tib/fib fracture (1) Tibia and fibula open fracture, right ICD Code: S82.201B - Unspecified fracture of shaft of right tibia, initial encounter for open fracture type I or II; S82.401B - Unspecified fracture of shaft of right fibula, initial encounter for open fracture type I or II Procedures Irrigation and debridement of open right distal tibia fracture, open reduction internal fixation right distal tibia fracture 07/29/2017 Brief History - From Admission Ms. 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 Around 3:30 p.m her right foot got stuck in between two pallets. When she was rescued her foot was dangling. She did not move until EMS came to bring her to the hospital. Patient denies any chest pain , shortness of breath, fever or chills. She denies any changes in bowel or bladder habits. ER doctor discussed with orthopedic surgery. Patient underwent right leg immobilization. She will undergo surgical intervention in the morning. CBC/BMP: 07/29/17 0607 07/29/17 0607 Significant Findings Laboratory Tests Test 07/28/17 17:00 07/29/17 06:07 Neutrophils (%) (Auto) 75.4 % (16.0-70.0) 76.1 % (16.0-70.0) Calcium Level 8.4 MG/DL (8.5-10.1) 7.9 MG/DL (8.5-10.1) Estimat Glomerular Filtration Rate 83 ML/MIN (>89) Red Blood Count 3.66 MIL/MM3 (4.00-5.30) Hematocrit 34.8 % (35.0-46.0) Monocytes (%) (Auto) 9.8 % (0.0-8.0) Monocytes # (Auto) 1.0 TH/MM3 (0-0.9) Imaging Last Impressions Tibia/Fibula X-Ray 07/29/17 0000 Signed Impressions: Service Date/Time: Saturday, July 29, 2017 09:50 - CONCLUSION: Intraoperative images. Luke Bruce MD Chest X-Ray 07/28/17 1649 Signed Impressions: Service Date/Time: Friday, July 28, 2017 17:18 - CONCLUSION: 1. No acute cardiopulmonary disease. Jarrett Renee MD PE at Discharge GENERAL: Alert, oriented 3, NAD. SKIN: Warm and dry. HEAD: Normocephalic. EYES: No scleral icterus. No injection or drainage. MUSCULOSKELETAL: No cyanosis, or edema. Right lower extremity is wrapped status post ORIF. Distal perfusion intact. Sensation intact in toes. Hospital Course Ms. Prakash is a 36 year old female who presents to the ED on 07/28/2017 after she injured her right leg in between two pallets at her work place. Radiological work up indicated right tibial and fibular fracture. Patient underwent ORIF right distal tibia 07/29. Patient recovered well, will be discharged home with pain medication, Xarelto as per PDX. Follow-up with orthopedics in 2 weeks. - Right Tibial and fibular fracture - s/p ORIF right distal tibia fracture - Continue acetaminophen, [place], Dilaudid IV for pain management. - Patient received perioperative antibiotics as per orthopedics. - Likely discharge tomorrow 07/31/2017. Pt Condition on Discharge: Good Discharge Disposition: Discharge Home Discharge Time: <= 30 minutes Discharge Instructions DIET: Follow Instructions for: As Tolerated, No Restrictions Activities you can perform: Non Weight Bearing, See Additionl Instruction Other Activity Instructions: Nonweightbearing right lower extremity Follow up Referrals: Orthopedics - 2 Weeks @ [facility] [place] with Parish Asif MD PCP Follow-up - 1 Week New Medications: Hydrocodone-Acetaminophen (Hydrocodone-Acetaminophen) 10-325 mg Tab 1 TAB PO Q4H PRN for PAIN, #60 TAB 0 Refills Rivaroxaban (Xarelto) 10 Mg Tab 10 MG PO DAILY for Blood Clot Prevention, #14 TAB 0 Refills Walker/Adult/Folding (Walker/Adult/Folding) 1 Mis Mis EA .ROUTE DIRECTED, #1 0 Refills Lisandro Urias MD Jul 31, 2017 13:28
== END 2017-07-31 12:04 | disposition home or self-care (01) | DRG 494 ==
LOC: NEPC 16:30 → NEDA 17:49 → N06A 22:03
PROVIDERS: ADMIT Internal Medicine; ATTEND Internal Medicine
PROC: 0QSGXZZ Reposition Right Tibia, External Approach (ICD-10-PCS; 2017-07-28)
PROC: 0QHG04Z Insertion of Internal Fixation Device into Right Tibia, Open Approach (ICD-10-PCS; principal; 2017-07-29 08:50)
DX: S82.391B Other fracture of lower end of right tibia, initial encounter for open fracture type I or II (principal); F32.9 Major depressive disorder, single episode, unspecified; S82.831A Other fracture of upper and lower end of right fibula, initial encounter for closed fracture; F41.0 Panic disorder [episodic paroxysmal anxiety]; W23.0XXA Caught, crushed, jammed, or pinched between moving objects, initial encounter; Y92.69 Other specified industrial and construction area as the place of occurrence of the external cause
CPT/HCPCS: 27752; 71010; 73590; 76000; 80048; 85025; 85610; 85730; 94150; C1713; J0131; J0690; J1100; J1170; J1580; J1885; J2250; J2405; J3010; J7030; J7120